=== PATIENT | female | born 1965 | race Caucasian/White ===

== ENCOUNTER → 2019-06-06 | Outpatient (CLI) | payer OTHER ==
--- NOTE | 2019-06-06 10:22 | Diagnostic Imaging Report ---
INDICATION: Routine screening. COMPARISON: No prior mammograms are available for comparison. This is a baseline study. TECHNIQUE: 2D and 3D bilateral screening mammography was performed with CAD. FINDINGS: Both breasts are heterogeneously dense, limiting the sensitivity of mammography. There are benign calcifications noted. There is a density in the medial left breast at anterior depth on the CC view. This most likely represents superimposed tissue. No correlate on the MLO view is identified. Even so, additional views are recommended. No other suspicious densities are seen. No malignant appearing microcalcifications are identified. The axillae are unremarkable. IMPRESSION: Left breast density. Spot compression and rolled CC views would be useful for further evaluation. ACR BI-RADS Category 0: Incomplete. (Needs additional imaging evaluation). Result letter will be mailed to the patient. Note: At least 10% of breast cancer is not imaged by mammography. Dictated by: Dictated on workstation # [id number]
== END ==
LOC: RAD 08:58
PROVIDERS: ATTEND Obstetrics & Gynecology
DX: Z12.31 Encounter for screening mammogram for malignant neoplasm of breast (principal)
CPT/HCPCS: 77067

== ENCOUNTER → 2019-06-16 | Outpatient (CLI) | payer OTHER ==
--- NOTE | 2019-06-16 09:52 | Diagnostic Imaging Report ---
INDICATION: Left breast density. The study is performed for further evaluation. Correlation is made with diagnostic mammogram earlier the same day and screening mammogram from 06/06/2019. Sonographic interrogation of the inner left breast was performed. There is a hypoechoic nodule at the 9:00 location of the left breast, 4 cm from the nipple measuring 11 mm x 7 mm x 3 mm. This does contain a minimal amount of blood flow may represent a small lymph node . This has fairly benign features. This most likely represents the density noted mammographically. No other sonographic abnormality is seen. IMPRESSION: BI-RADS 3 Benign-appearing nodule 9:00 location left breast 4 cm from the nipple, likely accounting for the density noted mammographically. A follow-up left mammogram and left breast ultrasound in 6 months is recommended to confirm stability. ACR BI-RADS Category 3: Probably benign findings. Dictated by: Dictated on workstation # [id number]
--- NOTE | 2019-06-16 12:23 | Diagnostic Imaging Report ---
INDICATION: Left breast density. Patient presents for additional views. Correlation is made with recent screening study from 06/06/2019. Unilateral left 2-D and 3-D diagnostic mammography was performed including spot compression CC, rolled CC and conventional 90 degree lateral views. There is a persistent nodular density in the medial left breast on additional views approximately 3 to 4 cm from the nipple. No corresponding density on the MLO view is seen. No suspicious calcifications are identified. IMPRESSION: BI-RADS 0 Persistent nodular density in the medial left breast, as described. Further evaluation with ultrasound is recommended and will be performed today. ACR BI-RADS Category 0: Incomplete. (Needs additional imaging evaluation). Result letter will be mailed to the patient. Note: At least 10% of breast cancer is not imaged by mammography. Dictated by: Dictated on workstation # [id number]
== END ==
LOC: RAD 08:45
PROVIDERS: ATTEND Obstetrics & Gynecology
DX: R92.2 Inconclusive mammogram (principal); R92.8 Other abnormal and inconclusive findings on diagnostic imaging of breast
CPT/HCPCS: 76642

== ENCOUNTER → 2020-06-08 | Outpatient (CLI) | payer OTHER ==
--- NOTE | 2020-06-08 14:10 | Diagnostic Imaging Report ---
INDICATION: Left breast density. Patient present for followup. Correlation is made prior mammogram from 06/06/2019. 2-D and 3-D bilateral diagnostic mammography was performed with CAD. Scattered fibroglandular densities are identified bilaterally. The density in the medial left breast anterior depth appears stable. No new mass is detected. No malignant appearing microcalcifications are identified. Axillae are unremarkable. IMPRESSION: BI-RADS 0 Stable density medial left breast anterior depth when compared with one year earlier. Patient is scheduled to undergo left breast ultrasound today as well for followup. ACR BI-RADS Category 0: Incomplete. (Needs additional imaging evaluation). Result letter will be mailed to the patient. Note: At least 10% of breast cancer is not imaged by mammography. Dictated by: Dictated on workstation # [id number]
--- NOTE | 2020-06-08 14:15 | Diagnostic Imaging Report ---
INDICATION: Followup left breast nodule. Correlation made with a diagnostic mammogram earlier today as well as left breast ultrasound from 06/16/2019. Sonographic interrogation of the inner left breast was performed. The benign-appearing, ovoid circumscribed nodule 9 o'clock location, 4 cm from the nipple again noted measuring 11 mm x 7 mm x 3 mm, identical to prior exam. No new abnormalities identified. IMPRESSION: BI-RADS category 2 Stable benign nodule 9 o'clock location left breast, 4 cm from the nipple. Patient may return to routine annual screening mammography. ACR BI-RADS Category 2: Benign findings. Result letter will be mailed to the patient. Note: At least 10% of breast cancer is not imaged by mammography. Dictated by: Dictated on workstation # [id number]
== END ==
LOC: RAD 06-01 12:45
PROVIDERS: ATTEND Obstetrics & Gynecology
DX: N63.20 Unspecified lump in the left breast, unspecified quadrant (principal); R92.8 Other abnormal and inconclusive findings on diagnostic imaging of breast
CPT/HCPCS: 76642; 77066; G0279; 77062

== ENCOUNTER → 2021-06-07 | Outpatient (CLI) | payer OTHER ==
--- NOTE | 2021-06-07 15:47 | Diagnostic Imaging Report ---
INDICATION: Routine screening. COMPARISON: Prior mammograms from 06/08/2020 and 10/07/2018. EXAMINATION: 2D and 3D bilateral screening mammography was performed with CAD. The current study was also evaluated with a Computer Aided Detection (CAD) system. FINDINGS: Both breasts are heterogeneously dense, limiting the sensitivity of mammography. A nodular density in the medial left breast appears stable. No new mass or malignant-appearing microcalcifications are seen. Axillae are unremarkable. IMPRESSION: No mammographic features suspicious for malignancy are identified. ACR BI-RADS Category 2: Benign findings. Result letter will be mailed to the patient. Note: At least 10% of breast cancer is not imaged by mammography. Dictated by: Dictated on workstation # [id number]
== END ==
LOC: RAD 09:45
PROVIDERS: ATTEND Obstetrics & Gynecology
DX: Z12.31 Encounter for screening mammogram for malignant neoplasm of breast (principal)
CPT/HCPCS: 77063; 77067